=== PATIENT | male | born 1985 | race Caucasian/White ===

== ENCOUNTER → 2021-05-16 | Outpatient (CLI) | payer OTHER ==
--- NOTE | 2021-06-19 16:31 | PFR/MVV ---
[facility] [address] [address] PULMONARY FUNCTION MVV/REPORT Name: FRANCISCO LUU [id number] Admission: 05/16/21 Attend Phys: Thomas Toledo DO Discharge: Date of : 83 Report #: [id number] THIS REPORT FOR: //name// >> SPIROMETRY: (BTPS) Height: 71 in cm Weight: 205 lbs kg Exam Date: 05/16/21 PRE-RX POST-RX PRED BEST %PRED BEST %PRED %CHG FVC LITERS . 5.34 . 5.18 . 97 . 5.71 . 107 . 10 FEV1 LITERS . 4.09 . 4.00 . 98 . 4.64 . 114 . 16 FEV1/FVC % . 76 . 77 . 102 . 81 . 107 . 5 CIO44-58% L/Sec . 4.19 . 3.73 . 89 . 4.74 . 113 . 27 PEF L/SEC . 9.66 . 6.43 . 67 . 8.99 . 93 . 40 FEF50/FIF50 UNITLESS . 5.42 . 4.35 . 80 . 5.80 . 107 . 33 MVV L/Min . . . f 1/Min . . . >> LUNG VOLUMES: (BTPS) PRE-RX POST-RX PRED AVG %PRED AVG %PRED %CHG VC Liters . 5.34 . 6.22 . 116 . . . TLC Liters . 7.24 . 7.06 . 97 . . . RV Liters . 2.05 . 0.84 . 41 . . . RV/TLC % . 29 . 12 . 40 . . . FRC PL Liters . 3.70 . 2.88 . 78 . . . FRC N2 Liters . 3.70 . . . . . ERV Liters . 1.77 . 1.95 . 110 . . . IC Liters . 3.54 . 4.18 . 118 . . . >> DIFFUSION: DLCO ml/Min/mmHg . 31.0 . 35.0 . 113 . . . DL [place] ml/Min/mmHg . 31.0 . 35.0 . 113 . . . DLCO/VA ml/Min/mmHg . 4.34 . 5.06 . 117 . . . VA Liters . 7.30 . 6.91 . 95 . . . COMMENTS: COMMENTS: >> RESISTANCE: [facility] [address] [place] [address] PULMONARY FUNCTION MVV/REPORT Name: FRANCISCO LUU Room #: REG [facility] Jackie#: [id number] Admission: 05/16/21 Attend Phys: Thomas Toledo DO Discharge: Date of : 83 Report #: [id number] PRE-RX PRED AVG %PRED Raw Total cmH20/L/Sec . . 1.85 . Raw Insp cmH20/L/Sec . . 1.69 . Raw Exp cmH20/L/Sec . . 1.14 . Raw cmH20/L/Sec . 1.20 . 1.27 . 106 Gaw L/Sec/cmH20 . 0.889 . 0.785 . 88 sRaw cmH20 Sec . 4.45 . 4.56 . 102 sGaw l/cmH20 Sec . 0.225 . 0.218 . 98 Vtq Liters . . 3.58 . # = OUTSIDE 95% CONFIDENCE INTERVAL CALIBRATION: PRED: 3.00 ACTUAL: EXP 3.01 INSP 3.02 [place] [id number] [place] [id number] >> INTERPRETATION/IMPRESSION: DATE OF SERVICE: 05/16/2021 PULMONARY FUNCTION STUDIES SPIROMETRY: FEV1 is 4.0 liters (98% predicted), FVC is 5.18 liters (97% predicted), FEV1/FVC ratio is 77%. There is a significant response to bronchodilator therapy. FEV1 increases to 4.64 liters (16% change), FVC increased to 5.71 liters (10% change). LUNG VOLUMES: Total lung capacity is 7.06 liters (97% predicted). Diffusing capacity is increased at (113% predicted). IMPRESSION: Pulmonary function studies are essentially normal. There is no obstructive flow at baseline; however, there is a significant response to bronchodilator therapy. Lung volumes are normal. Diffusing capacity is increased. Pattern on function would be consistent with an asthmatic component. Please correlate clinically. <ELECTRONICALLY SIGNED> By: Tamir Kelley MD 06/19/21 1631 Tamir Kelley MD /nt
== END ==
LOC: PUL 12:01
PROVIDERS: ATTEND Chiropractor
DX: J44.0 Chronic obstructive pulmonary disease with (acute) lower respiratory infection (principal)